=== PATIENT | male | born 1975 | race Hispanic/Latino ===

== ENCOUNTER 2020-10-09 18:25 | Emergency (ER) | payer SELFPAY ==
--- NOTE | 2020-10-09 19:27 | RAD ---
RIGHT FINGER THREE VIEWS: 10/09/20 HISTORY: Injury, right ring finger pain. FINDINGS/IMPRESSION: no fracture or dislocation is seen. POS: [facility]
--- NOTE | 2020-10-09 19:28 | RAD ---
LEFT MIDDLE FINGER THREE VIEWS: 10/09/20 HISTORY: Injury, left middle finger pain. FINDINGS/IMPRESSION: There is a minimally displaced fracture involving the dorsal aspect of the base of the distal phalanx with fracture line extending into the articular surface. POS: [facility]
== END 2020-10-09 19:48 | disposition home or self-care (01) ==
LOC: ERS 18:25
DX: S62.663A Nondisplaced fracture of distal phalanx of left middle finger, initial encounter for closed fracture (principal); S60.041A Contusion of right ring finger without damage to nail, initial encounter; W22.8XXA Striking against or struck by other objects, initial encounter; F17.210 Nicotine dependence, cigarettes, uncomplicated

== ENCOUNTER 2021-01-25 20:43 | Observation (INO) | payer SELFPAY ==
[2021-01-25 21:12] LABS: #Basophils 0.1 thou/uL (0.0-0.2); #Eosinphils 0.2 thou/uL (0.0-0.7); #Lymphocytes 1.8 thou/uL (1.20-3.40); #Monocytes 0.8 thou/uL (0.11-0.59); #Neutrophils 7.4 thou/uL (1.40-6.50); %Basophils 0.6 % (0.0-1.0); %Eosinophils 1.7 % (0.0-10.0); %Lymphocytes 17.8 % (21.0-51.0); %Monocytes 7.4 % (0.0-10.0); %Neutrophils 72.5 % (42.0-75.0); Hemoglobin 16.8 g/dL (14.0-18.0); Mean Corpuscular HGB CONC 33.7 g/dL (32.0-36.0); Mean Corpuscular Hemoglobin 30.7 pg (27.0-31.0); Mean Corpuscular Volume 91.2 fL (78.0-98.0); Mean Platelet Volume 7.1 fL (7.4-10.4); Platelet Count 241 thou/uL (130-400); RBC Distribution Width 12.3 % (11.5-14.5); Red Blood Cell (RBC) Count 5.46 mill/uL (4.70-6.10); White Blood Cell (WBC) Count 10.2 thou/uL (4.8-10.8)
[2021-01-25 21:34] LABS: ALT (SGPT) 44 U/L (8-55); AST (SGOT) 23 U/L (5-34); Albumin 4.5 g/dL (3.5-5.0); Alkaline Phosphatase 89 U/L (40-110); Anion Gap 12 mmol/L (10-20); BUN (Urea Nitrogen) 14 mg/dL (8.9-20.6); Bilirubin, Total 0.5 mg/dL (0.2-1.2); Calc. Creatinine Clearance 0 mL/min (70-130); Calcium 9.8 mg/dL (7.8-10.44); Carbon Dioxide 29 mmol/L (22-29); Chloride 100 mmol/L (98-107); Globulin 3.6 g/dL (2.4-3.5); Glucose 101 mg/dL (70-105); Lipase 12 U/L (8-78); Potassium 4.1 mmol/L (3.5-5.1); Protein, Total 8.1 g/dL (6.0-8.3); Sodium 137 mmol/L (136-145)
[2021-01-25] MEDS ORDERED: Meclizine HCl 25 MG TAB ONE (22:57)
[2021-01-25] MEDS ORDERED: Ondansetron PF 4 MG/2 ML Vial ONE (22:57)
[2021-01-26] MEDS ORDERED: Aspirin 325 MG TAB ONE (01:06)
[2021-01-26] MEDS ORDERED: Acetaminophen 325 MG TAB PO PRN (05:45)
[2021-01-26] MEDS ORDERED: Ondansetron ODT 4 MG TAB PO PRN (05:45)
[2021-01-26] MEDS ORDERED: Iopamidol-370 76% 500 ML 1 ML ONE (08:00)
[2021-01-26] MEDS ORDERED: Enoxaparin Sodium 40 MG/0.4 ML SYRINGE ONE (08:22)
[2021-01-26] MEDS ORDERED: Aspirin Chewable 81 MG TAB ONE (08:22)
[2021-01-26] MEDS ORDERED: Enoxaparin Sodium 40 MG/0.4 ML SYRINGE SC SCH (09:00)
[2021-01-26] MEDS ORDERED: Aspirin 81 mg Enteric Coated Tablet PO SCH (09:00)
[2021-01-26 09:03] LABS: SARS-CoV-2 PCR by NAA Not Detected (NotDetected)
[2021-01-26 18:04] VITALS: TEMP 98
[2021-01-26 21:31] VITALS: BP 146/78
== END 2021-01-26 02:35 | disposition home or self-care (01) ==
LOC: ERS 20:43 → ERHOLD 01-26 02:23
PROVIDERS: ADMIT Student in an Organized Health Care Education/Training Program; ATTEND Hospitalist
DX: R42 Dizziness and giddiness (principal); F17.210 Nicotine dependence, cigarettes, uncomplicated; Z20.822 Contact with and (suspected) exposure to COVID-19
CPT/HCPCS: 36415; 70496; 70498; 70551; 71045; 80053; 83690; 84484; 85025; 87635; 93005; 96374; J1650; J2405; Q9967; U0003; U0005